=== PATIENT | female | born 1990 | race Caucasian/White ===

== ENCOUNTER 2020-02-20 19:39 | Emergency (ER) | payer OTHER, SELFPAY ==
--- NOTE | ~2020-02-20 | XR_ITS ---
EXAMINATION: XR chest 2V DATE: 02/20/2020 20:29 INDICATION: Weakness and fatigue TECHNIQUE: PA and lateral views of the chest are obtained. COMPARISON: None available FINDINGS: The lungs are free of acute opacities. There is no pleural effusion or pneumothorax. The ca rdiomediastinal silhouette is normal. The visualized osseous structures are unremarkable. Bilateral b reast implants are noted. IMPRESSION: 1. No acute cardiopulmonary abnormality. Reviewed, dictated and finalized at location A.
[2020-02-20 19:41] VITALS: BP 116/76; PULSE 94; RESP 20; TEMP 36.8; O2SAT 100
[2020-02-20 19:51] LABS: Basophils Percent Auto 0.4 % (0.2-1.2); Eosinophils Absolute Auto 0.3 K/mm3 (0-0.3); Eosinophils Percent Auto 3.1 % (0-4.4); Hematocrit 42.1 % (37.0-47.0); Hemoglobin 13.8 g/dL (12.0-15.0); Immature Granulocyte Absolute 0.02 K/mm3 (0.00-0.031); Immature Granulocyte Percent A 0.2 % (0-0.5); Lymphocytes Absolute Auto 2.94 K/mm3 (0.9-3.2); Mean Corpuscular HGB Conc 32.8 g/dl (32-36); Mean Corpuscular Hemoglobin 30.3 pg (26-34); Mean Corpuscular Volume 92.3 fl (80-100); Monocytes Absolute Auto 0.7 K/mm3 (0.1-0.6); Monocytes Percent Auto 6.7 % (2.6-8.5); Neutrophils Absolute Auto 6.5 K/mm3 (1.3-6.7); Neutrophils Percent Auto 61.6 % (45.5-73.1); Platelet Count Result 284 k/mm3 (150-375); Red Blood Count 4.56 M/mm3 (4.2-5.4); White Blood Count 10.5 K/mm3 (4.5-10.0)
[2020-02-20 20:02] LABS: Alanine Aminotransferase 17 U/L (4-35); Albumin Level 4.7 g/dL (3.5-5.1); Alkaline Phosphatase 70 U/L (38-126); Anion Gap 6 mmol/L (8-16); Aspartate Amino Transferase 27 U/L (14-36); Bilirubin,Total 0.4 mg/dL (0.2-1.3); Blood Urea Nitrogen 12 mg/dL (7-17); Calcium 9.3 mg/dL (8.4-10.2); Carbon Dioxide 26 mmol/L (22-30); Chloride 103 mmol/L (98-107); Estimated CRCL calculation 87 ml/min; Estimated Glomerular Filt Rate > 60; Glucose 95 mg/dL (65-105); Potassium 4.3 mmol/L (3.4-5.0); Sodium 135 mmol/L (137-145)
[2020-02-20 20:43] LABS: Add Urine Microscopic? NO; Appearance Urine Clear (Clear); Bilirubin Urine Negative (Negative); Blood Urine Negative (Negative); Color Urine Straw (Yellow); Glucose Urine UA Negative (Negative); Ketones Urine Negative (Negative); Leukocyte Esterase Ur Negative LEU/UL (Negative); Nitrate Urine Negative (Negative); Protein Urine Negative (Negative); Specific Grav Ur 1.015 (1.001-1.035); Urobilinogen Urine Negative mg/dL (<2.0)
--- NOTE | 2020-02-20 21:08 | ED.GENADULT ---
HPI - General Adult General Chief complaint: Weakness Stated complaint: weakness Time Seen by Provider: 02/20/20 20:42 Source: patient Mode of arrival: ambulatory Limitations: no limitations History of Present Illness HPI narrative: 29 years old white female presents with not feeling good, general weakness and tiredness for 4 weeks, got worse over the last 2 weeks. Patient denies any fever, chills, nausea, vomiting, diarrhea, constipation, chest pain, shortness of breath, back pain, headache. Patient reports a lot of stress lately. Related Data Allergies Allergy/AdvReac Type Severity Reaction Status Date / Time bacitracin Allergy Unknown Verified 12/09/15 14:51 lidocaine Allergy Unknown Verified 12/09/15 14:51 naproxen Allergy Unknown Verified 12/09/15 14:51 neomycin Allergy Unknown Verified 12/09/15 14:51 polymyxin B Allergy Unknown Verified 12/09/15 14:51 pramoxine Allergy Unknown Verified 12/09/15 14:51 prilocaine Allergy Unknown Verified 12/09/15 14:51 Review of Systems Review of Systems: Narrative: CONSTITUTIONAL: Denies fever, chills, or sweats. EYES: Denies visual changes, redness, or discharge. ENT: Denies rhinorrhea, congestion, sore throat, or otalgia. CARDIOVASCULAR: Denies chest pain, palpitations, or edema. RESPIRATORY: Denies cough or dyspnea. GASTROINTESTINAL: Denies abdominal pain, nausea, vomiting, or diarrhea. GENITOURINARY: Denies dysuria or hematuria. SKIN: Denies rash or itching. MUSCULOSKELETAL: Denies back pain, joint pain, or myalgia. NEUROLOGIC: Denies headache, numbness, or weakness. PSYCHIATRIC: Denies anxiety or depression. PMFSH Past Medical History Medical History (Updated 02/20/20 @ 21:15 by Figueroa Martines MD) Depression Social History Social History (Updated 02/20/20 @ 21:09 by Figueroa Martines MD) Social History: Patient smokes occasionally, drinks occasionally, denies any marijuana Substance use: unknown Exam Narrative: Exam Narrative: General appearance: Well-developed, well-nourished Skin: Normal color Head: Normocephalic, nontraumatic Eyes: Clear conjunctiva ENT: Oropharynx normal, ears normal, nose normal Neck: Supple, nontender Chest and respiratory: Airway patent, no respiratory distress, no accessory muscle use Heart: Regular rate/rhythm Abdomen: Soft, nontender, no organomegaly, quiet bowel sounds Vascular: Normal peripheral pulses, normal capillary refill. Musculoskeletal: Normal range of motion, nontender back Neurologic: Alert and oriented ?3, [employer] is normal as tested, no gross motor deficit Course Course Emergency Course: Stable Vital Signs Vital signs: Vital Signs Temperature 36.8 C 02/20/20 19:41 Pulse Rate 94 02/20/20 19:41 Respiratory Rate 02/20/20 19:41 Blood Pressure 116/76 02/20/20 19:41 Pulse Oximetry 100 02/20/20 19:41 Temperature 36.8 C 02/20/20 19:41 Pulse Rate 94 02/20/20 19:41 Respiratory Rate 02/20/20 19:41 Blood Pressure 116/76 02/20/20 19:41 Pulse Oximetry 100 02/20/20 19:41 Medical Decision Making MDM Narrative Medical decision making narrative: Patient presents with weakness and tiredness for over 1 month, a lot of stress lately. Anxiety, depression induced fatigue and general weakness is my concern. On physical exam patient been having intermittent sighing. Mother at the bedside will have history of depression and anxiety. Physical exam unremarkable, blood work-up is unremarkable. My plan to discharge patient on sertraline and clonazepam. Differential Diagnosis Differential Diagnosis: Electrolyte imbalance, urinary tract infection, depression and anxiety Vital Signs Vital Signs: Vital Signs Temperature
[2020-02-20 21:36] VITALS: BP 115/75; PULSE 97; RESP 18; O2SAT 100
== END 2020-02-20 21:37 | disposition home or self-care (01) ==
PROVIDERS: Emergency Provider Emergency Medicine
DX: F41.9 Anxiety disorder, unspecified (principal); F17.200 Nicotine dependence, unspecified, uncomplicated
CPT/HCPCS: 36415; 71046; 80053; 81003; 81025; 85025; 99283

== ENCOUNTER → 2020-02-25 12:30 | Outpatient (CLI) | payer OTHER, SELFPAY ==
--- NOTE | ~2020-02-25 | XR_ITS ---
EXAMINATION: XR lumbar spine 2-3V EXAM DATE: 02/25/2020 13:19 INDICATION: Low-back pain. TECHNIQUE: Lumber spine frontal, lateral, lateral L5-S1 projections for interpretation. There is no prior study for comparison. FINDINGS: There are no acute fractures identified. Sacrum, sacroiliac joints, sacral arcuate lines a re intact. The vertebral bodies are aligned in the AP dimension. Vertebral body and disc heights are well-maintained. Mild lumbar facet arthropathy. Paraspinal soft tissue is unremarkable. IMPRESSION: Mild lumbar facet arthropathy. Reviewed, dictated and finalized at location A.
--- NOTE | ~2020-02-25 | XR_ITS ---
XR cervical spine 4-5V DATE: 02/25/2020 13:19 INDICATION: Neck pain TECHNIQUE: AP, open-mouth, lateral and swimmer views COMPARISON: None FINDINGS: There is straightening/slight reversal of the cervical spine. C1 and C2 are normally aligned and the odontoid process is intact. No fracture or dislocation or lock ed facet or prevertebral soft tissue swelling. The cervical interspaces are preserved. There is mild dextro scoliosis of the upper thoracic spine. IMPRESSION: Straightening/mild reversal cervical curvature Reviewed, dictated and finalized at location B.
== END ==
PROVIDERS: PCP Emergency Medicine; Visit Provider Emergency Medicine
DX: M54.2 Cervicalgia (principal)
CPT/HCPCS: 72050; 72100

== ENCOUNTER → 2021-05-24 08:55 | Outpatient (CLI) | payer OTHER, SELFPAY ==
[2021-05-25 03:58] LABS: SARS-CoV-2 RNA PCR Positive
== END ==
PROVIDERS: PCP Emergency Medicine; Visit Provider Emergency Medicine
DX: U07.1 COVID-19 (principal); J06.9 Acute upper respiratory infection, unspecified
CPT/HCPCS: C9803; U0003; U0005

== ENCOUNTER 2022-08-09 10:48 | Emergency (ER) | payer OTHER, SELFPAY ==
[2022-08-09 10:56] VITALS: BP 127/90; PULSE 91; RESP 18; TEMP 36.7; O2SAT 98
--- NOTE | 2022-08-09 11:00 | ED.WOUNDLAC ---
HPI - Wound/Laceration General Chief Complaint: Wound/Laceration Stated Complaint: Cut Thumb Lt Hand Time Seen by Provider: 08/09/22 11:00 Source: patient Mode of arrival: ambulatory Limitations: no limitations History of Present Illness HPI narrative: 32-year-old female presented for of laceration to the left after injury today. She states she was at work, cutting green onions with a knife slipped and sliced the tip of the thumb. She was tested under water and applied Band-Aids, stating it continued to bleed. Denies numbness, tingling, weakness or decreased range of motion. Unsure of last tetanus. Related Data Allergies Allergy/AdvReac Type Severity Reaction Status Date / Time naproxen AdvReac Mild Hives Verified 08/09/22 11:09 Review of Systems Review of Systems: CONSTITUTIONAL: Denies body aches, fever, chills, or sweats. CARDIOVASCULAR: Denies chest pain, palpitations, or edema. RESPIRATORY: Denies cough or dyspnea. SKIN: laceration left thumb MUSCULOSKELETAL: Denies back pain, joint pain, or myalgia. NEUROLOGIC: Denies headache, numbness, tingling, or weakness. [facility] Past Medical History Medical History Depression Social History Social History Social History: Patient smokes occasionally, drinks occasionally, denies any marijuana Substance use: unknown Comments At time of signature, I have reviewed and agree with nursing past medical, surgical, social and family history unless otherwise noted. Please see nursing chart for further information. There is no relevant family history pertinent to the presenting complaint Exam Narrative: GENERAL: Well-appearing ENT: Mucous membranes moist. Oropharynx without edema, erythema or lesions. NECK: Supple. No lymphadenopathy CHEST: Clear to auscultation. HEART: Regular rate and rhythm. SKIN: Left thumb distal aspect with irregular laceration approx 0.5cm under nail edge with flap extending over the nail approx 2mm; laceration extends to ulnar aspect approx additional 0.5cm, small amount bleeding; no nail laceration. NEURO: Alert and oriented x3. Course Course Emergency Course: Patient is aware of diagnosis, understands and agrees to treatment plan. Anticipatory guidance given. Patient agrees to follow-up as directed and is aware of reasons to seek care at the emergency department. Portions of this record may have been created with voice recognition software Level of Care: Express Care Visit Vital Signs Vital signs: Vital Signs Temperature 98.1 F 08/09/22 10:56 Pulse Rate 91 08/09/22 10:56 Respiratory Rate 18 08/09/22 10:56 Blood Pressure 127/90 08/09/22 10:56 Pulse Oximetry 98 08/09/22 10:56 Oxygen Delivery Room Air 08/09/22 10:56 Temperature 98.1 F 08/09/22 10:56 Pulse Rate 91 08/09/22 10:56 Respiratory Rate 18 08/09/22 10:56 Blood Pressure 127/90 08/09/22 10:56 Pulse Oximetry 98 08/09/22 10:56 Oxygen Delivery Room Air 08/09/22 10:56 Reviewed Procedures Laceration left thumb: Date: 08/09/22 Description: flap and irregular Depth: simple, single layer Pre-repair: wound explored and irrigated ====== Skin Level ====== Skin layer closed with: dermabond and steri strips ====== Subcutaneous Layer ====== ====== Muscle Layer ====== ====== Tendon Layer ====== Dressing: Wound cleansed. verbal consent obtained. Bleeding controlled, edges approximated with steri strips then dermabond applied. Pt tolerated well. MDM - Wound/Laceration MDM Narrative Medical decision making narrative: Patient tolerated wound closure. Tetanus updated today. Advised supportive measures and signs/symptoms to go to the ER. Pt is appropriate for outpt treatment and f/u. Differential Diagnosis Differential diagnosis: Likely laceration, abrasion and av
[2022-08-09] MEDS: TETANUS,DIPHTHERIA,AC PERTUSSIS ADULT (0.5 ML) BOOSTRIX IM (11:14)
== END 2022-08-09 11:30 | disposition home or self-care (01) ==
PROVIDERS: Emergency Provider Nurse Practitioner Family
DX: S61.012A Laceration without foreign body of left thumb without damage to nail, initial encounter (principal); F17.200 Nicotine dependence, unspecified, uncomplicated; Z23 Encounter for immunization; W26.0XXA Contact with knife, initial encounter; Y99.0 Civilian activity done for income or pay
CPT/HCPCS: 12001; 90471; 90715; 99213; G0463

== ENCOUNTER 2024-04-17 15:25 | Emergency (ER) | payer OTHER, SELFPAY ==
--- NOTE | 2024-04-17 15:26 | ED.FEMALEGU ---
HPI - Female Genitourinary General Chief complaint: Urogenital-Female Stated complaint: Possible UTI Time Seen by Provider: 04/17/24 15:26 Source: patient Mode of arrival: ambulatory Limitations: no limitations History of Present Illness HPI Narrative: patient is a 33-year-old female who presents with 3 days of hematuria, burning with urination, frequency, low back pain. Denies any fever, chills, nausea, vomiting, diarrhea. Did take azo today. MD elicited complaint: dysuria Related Data Home Medications Medication Instructions Recorded Confirmed clonazepam 1 mg tablet 1 mg PO BID 04/17/24 04/17/24 lurasidone 120 mg tablet 120 mg PO DAILY 04/17/24 04/17/24 Allergies Allergy/AdvReac Type Severity Reaction Status Date / Time naproxen AdvReac Mild Hives Verified 04/17/24 15:36 Review of Systems Review of Systems: All systems reviewed & are unremarkable except as noted in HPI and below Constitutional: Constitutional: Denies chills, Denies fever(s), Denies headache(s), Denies malaise and Denies weakness Eyes: Eyes: Denies change in vision, Denies eye discharge and Denies irritation ENT: Denies otalgia, Denies headache(s), Denies nasal congestion, Denies nasal discharge, Denies sinus pain and Denies sore throat Cardiovascular: Cardiovascular: Denies chest pain, Denies edema, Denies palpitations and Denies dyspnea Respiratory: Respiratory: Denies cough and Denies dyspnea Gastrointestinal: Gastrointestinal: Denies abdominal pain, Denies diarrhea, Denies nausea and Denies vomiting Genitourinary: Genitourinary: Denies hematuria, Reports nocturia, Reports dysuria, Reports flank pain and Reports urinary urgency Musculoskeletal: Musculoskeletal: Denies back pain and Denies numbness Integumentary/Breasts: Skin/Breast: Denies pruritus and Denies rash Neurologic: Denies headache(s), Denies numbness and Denies weakness Psychiatric: Psychiatric: Reports no additional psychiatric complaints Endocrine: Endocrine: Denies palpitations PMFSH Past Medical History Medical History Depression Social History Social History Social History: Patient smokes occasionally, drinks occasionally, denies any marijuana Substance use: unknown Comments At time of signature, agree with nursing past medical, surgical, social and family history. There is no relevant family history pertinent to the presenting complaint. Exam Const: General: cooperative, healthy appearing, comfortable, no acute distress and well nourished Nutritional Appearance: well nourished Orientation/consciousness: patient oriented x3 HENMT: Head: normocephalic and atraumatic Ears: external ears normal Face/Nose/Sinus: Normal external nose present, Normal nares present and normal facial exam Face and sinus: normal facial exam Eyes: General: appearance normal, both eyes and all related structures Pupils: Equal, round and reactive pupils present EOM: EOMs intact bilaterally Neck: Neck: normal visual inspection, full ROM and supple Chest: Chest palpation & inspection: normal inspection of the chest Resp: Effort & Inspection: normal respiratory effort and able to speak in complete sentences Cardio: Rate: regular rate Rhythm: regular rhythm GI: Inspection: normal to inspection GI Palp: No abdominal tenderness and Yes Soft to palpation : General: Yes no CVA tenderness Back/Spine/Pelvis: Back: no CVA tenderness Skin: General skin exam: normal color and no rashes or lesions noted Neuro: General: patient oriented x3 and moves all extremities Cranial nerves: Yes Equal, round and reactive pupils present Extrem: General: normal to inspection and full ROM Psych: Appearance: grossly normal and well kempt Course Course Emergency Course: Patient is aware of diagnosis, understands and agrees to treatment plan. Anticipatory guidance given. Patient agrees to follow-up as directed and is aware of reasons to seek care at the emergency department. Portions of this record may have been created with voice recognition software Level of Care: Express Care Visit Vital Signs Vital signs: Vital Signs Temperature 36.7 C 04/17/24 15:36 Pulse Rate 110 H 04/17/24 15:36 Respiratory Rate 18 04/17/24 15:36 Blood Pressure 110/84 04/17/24 15:36 Pulse Oximetry 100 04/17/24 15:36 Oxygen Delivery Room Air 04/17/24 15:36 Temperature 36.7 C 04/17/24 15:38 Pulse Rate 103 H 04/17/24 15:47 Respiratory Rate 18 04/17/24 15:38 Blood Pressure 110/84 04/17/24 15:38 Pulse Oximetry 100 04/17/24 15:38 Oxygen Delivery Room Air 04/17/24 15:38 Reviewed MDM - Female Genitourinary MDM Narrative Medical decision making narrative: Exam findings and UA show probable UTI; patient is non-toxic appearing and is in no distress. No CMT, adnexal tenderness, or evidence of pelvic etiology. Patient is appropriate for outpatient treatment and follow-up. Differential Diagnosis Differential diagnosis: Likely urinary tract infection, bacterial vaginosis, trichomoniasis, cervicitis, vaginitis and cystitis Medical Records Attestation: I reviewed the patient's medical records. Lab Data Attestation: I reviewed the patient's lab results. Labs: Lab Results 04/17/24 Range/Units 15:53 POC Urine Color Yellow POC Urine Clarity Cloudy POC Urine pH 5.5 POC Ur Specif [place] 1.030 POC Urine Protein 2+ (Negative) POC Ur Glucose (UA) Negative (Negative) POC Urine Ketones Trace (Negative) POC Urine Blood 2+ (Negative) POC Urine Nitrite Negative (Negative) POC Urine Bilirubin 1+ (Negative) POC Urine Urobilinogen 0.2 POC U Leukocyte Esteras 1+ (Negative) Discharge Plan Discharge Clinical Impression: Urinary tract infection Qualifiers: Urinary tract infection type: acute cystitis Hematuria presence: with hematuria Qualified Code(s): N30.01 - Acute cystitis with hematuria Patient Disposition: Home, Self-Care Condition: Stable Instructions: Urinary Tract Infection in Women (ED) Additional Instructions: We will send a urine culture to the lab, based on your symptoms and urine dip we will start treatment today. If culture comes back and bacteria is not susceptible to antibiotic, your prescription may change. Your symptoms should improve within a day of starting antibiotics, but you should finish all the antibiotic pills you get. Otherwise your infection might come back Continue with increased water intake. Take Tylenol or ibuprofen as needed for pain or fever. Follow-up with primary care provider for urine recheck or see ER visit if condition worsens with high fever, nausea, vomiting, severe back pain Prescriptions: New cephalexin 500 mg capsule 500 mg PO BID 5 Days Qty: 10 0RF No Action clonazepam 1 mg tablet 1 mg PO BID lurasidone 120 mg tablet 120 mg PO DAILY Follow-up/Referrals: Jack,NADEGE Carpenter [Primary Care Provider] - 3 Days Stand Alone Forms: Work/School Release IP Time of Disposition: 16:23
[2024-04-17 15:36] VITALS: BP 110/84; PULSE 110; RESP 18; TEMP 36.7; O2SAT 100
[2024-04-17 15:38] VITALS: BP 110/84; PULSE 110; RESP 18; TEMP 36.7; O2SAT 100
[2024-04-17 15:47] VITALS: PULSE 103
[2024-04-17 15:55] LABS: EDUAAPPEAR Cloudy; EDUABILI 1+ (Negative); EDUABLOOD 2+ (Negative); EDUACOLOR1 Yellow; EDUAGLUCOSE Negative (Negative); EDUAKETONE Trace (Negative); EDUALEUKO 1+ (Negative); EDUANITRATE Negative (Negative); EDUAPH 5.5; EDUAPROTEIN 2+ (Negative); EDUAUROBILI 0.2
== END 2024-04-17 16:25 | disposition home or self-care (01) ==
PROVIDERS: Emergency Provider Nurse Practitioner Family; PCP Nurse Practitioner Family
DX: N30.01 Acute cystitis with hematuria (principal); B96.20 Unspecified Escherichia coli [E. coli] as the cause of diseases classified elsewhere; F32.A Depression, unspecified; Z72.0 Tobacco use
CPT/HCPCS: 81003; 87077; 87086; 87186; 99213; G0463

== ENCOUNTER 2024-10-27 16:28 | Emergency (ER) | payer OTHER, SELFPAY ==
--- OUTSIDE RECORDS SUMMARY | 2024-10-27 16:32 | XMS_ITS | Continuity of Care Document ---
Author Organization [facility] Address [address] [place] [address] [address] [place] [address] Phone Care Team Providers Care Pr Manager Name Role Phone Cho OD, Dgao Unavailable Unavailable Advance Directives Directive Yes / No Effective Date File Name No Information Encounters Encounter Description Practice Location Reason(s) For Visit Diagnoses Date Provider Providers Copied on Encounter [facility], [id number] [place] [address] [address], [place], [place], [id number], [place] tel:[phone] [facility] No Information 7-200 6 Cho OD Dago. [address] , [address], [place], [address], [place]. tel:[phone] Family History Family Member Type Diagnosis Age At Onset No Information Payers Payer name Insurance type Covered democrat ID Authoriza tion(s) No Information Social History Type Description Quantity Date Captured Comments Sex Female Smoking Status No Information Chief Complaint And Reason For Visit No Information Reason For Referral Reason For Referral No Information History Of Present Illness Encounter Date Complaint History Of Prese nt Illness No Information Functional Status Date Functional Assessmen t No Information Instructions Date Instruction Additional Infor mation No Information Assessments Type Assessment Date No Information Patient Care Teams Name Effective Dates (start - stop) Status Members No Information
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
--- OUTSIDE RECORDS SUMMARY | 2024-10-27 16:32 | XMS_ITS | Referral Summary ---
Author Organization [facility] Address [address] [place] [address] Care Team Providers Care Newspaper Press Operator Apprentice Name Role Phone Efren Valerio MD Primary Care Provider [phone] Allergies Active Allergy Reactions Criticality Noted Date Comments Diphenhydramine Other (See comments) Reaction: Burning Sensation, Naproxen Other (See comments) Reaction: Burning Sensation, Medications traMADol (ULTRAM) 50 mg tablet Take 50 mg by mouth every 6 (six) hours. Active ALPRAZolam (XANAX) 0.5 mg tablet Take 0.5 mg by mouth nightly as needed for anxiety. Active minocycline (DYNACIN) 100 mg tablet Take 100 mg by mouth 2 (two) times a day. Active DULoxetine DR (CYMBALTA) 60 mg capsule Take 60 mg by mouth daily. Active albuterol HFA (PROVENTIL HFA,VENTOLIN HFA) 90 mcg/actuation inhaler Inhale 2 puffs every 6 (six) hours as needed for wheezing. Active topiramate (TOPAMAX) 50 mg tabletIndicati ons:Migraine Prevention Take 1 tablet (50 mg total) by mouth daily. Patient needs a follow up appointment for further refills. 30 tablet 9 Active tiZANidine (ZANAFLEX) 4 mg tablet Take 1 tablet (4 mg total) by mouth every 6 (six) hours as needed (To relax muscles) Collaborating physician Efren Villarreal MD 20 tablet 1 Active traMADoL (ULTRAM) 50 mg tablet Take 1 tablet (50 mg total) by mouth every 6 (six) hours P.r.n. pain. Take 500 mg to 650 mg of Tylenol with each dose. Take with food. Collaborating physician Efren Villarreal MD 20 tablet 1 Active Active Problems Problem Noted Date Diagnosed Date Left shoulder strain, initial encounter 02/06/20 21 Rotator cuff strain, left, initial encounter 03/2021 Spells of trembling 09/13/2017 Assessment & Plan (03/11/2018 12:56 PM CDT): Progressive trembling up extremities bilaterally without loss of consciousness, but impaired ability to control body that is different that prior seizures. It is certainly possible initial events were seizure, however current events sound most consistent with pseudoseizure. Her marked temporary resolution after initiation of topamax 25 mg BID would not be expected response of near daily seizures to low dose AED. I again explained that prior EEG was unrevealing, which was discussed at last visit, but patient remains under impression it was abnormal. Patient is 'usually' not driving, and I again explained legally mandated 6 month driving restriction after events of this nature, even if I do not believe they are epileptic events. I explained this to grandmother as well that she should not be driving. Last event was 2 weeks prior to this visit, so cannot drive until August currently, and this restarts with each subsequent event. I strongly encouraged she follow-up with CBT for stress management/coping skills. I again raised possibility of inpatient vEEG monitoring with epileptologist to confirm nature of these events, which she remains uninterested in. She again asserts that she has 'already done everything' for anxiety and is more interested in addressing her medical issues. I was with the patient for over 25 minutes and spent >50% of the visit reviewing pertinent test results with the patient, counseling them on medication management options and lifestyle changes that could benefit symptoms, answering their questions, and discussing follow-up planning Assessment & Plan (09/13/2017 12:34 PM CDT): 27 year old who reports history of seizures with a few events in past and then for last 6 months daily/multiple times daily episodes that are different. She reports in past having one episode while sitting on barstool where left arm contracted up and she fell of bar stool and lips turned blue to point that father started CPR that sound like a potential generalized seizure. She has had 2 episodes of just dropping as well. EEG after she reports was normal. She broke up with long-term boyfriend 7 months ago and for last 6 months has had daily episodes of severe convulsions where she cannot control her body, feels short of breath, and terribly anxious about what is going on. She has preserved consciousness during this time, and recent EEG reviewed and normal (she reports she was told this EEG showed temporal lobe abnormalities, but report I have available is of normal EEG, and I showed this report to her). 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 She was not receptive to this diagnosis and adamant this is not just stress, something is going on with me and I want my life back. She was not receptive to seeing psychiatry or following up to help identify improved coping mechanisms. It is certainly possible for people to have both seizures and non-epileptic seizures, so I do still have some concerns about her prior events, but she has not had any events like that recently. At this time she feels I have done everything I need to address stress. I told her given daily episodes, it would be appropriate to obtain vEEG monitoring to definitely assess these episodes, but she was not interested in referral to seizure specialist for vEEG monitoring. I was with the patient for over 70 minutes and spent >50% of the visit reviewing pertinent test results with the patient, counseling them on medication management options and lifestyle changes that could benefit symptoms, answering their questions, and discussing follow-up planning Chronic daily headache 09/13/2017 Assessment & Plan (03/11/2018 12:46 PM CDT): Has headache and neck pain that improved markedly after topiramate 25 BID started and she never increased, despite headaches gradually returning over last few weeks. Will increase evening dose to 50 mg, with plan to increase AM dose to 50 mg in 3-4 weeks if no improvement by that time. She is also on cymbalta 60 I suspect MSK neck pain may be partly related to her headaches and would see how this improves with improved headache control. Continue to stay well hydrated, encouraged exercise and sleep, and again encouraged anxiety management and follow-up. Assessment & Plan (09/13/2017 12:32 PM CDT): Patient reports daily headaches that have migrainous and tension type features. She has not been on preventative medication. Main risk factors at this time seem to be significant sleep deprivation and stress/mood. She was not receptive to suggestions for lifestyle/stress management options, including increased exercise. I reviewed preventative medications and suggested options included increasing cymbalta, starting propranolol to help both headaches and prominent constant fight or flight feeling, however she would prefer to start a seizure medication such as topiramate, which could be beneficial in event of epilepsy co-morbid to her non-epileptic events. I expressed my concern about weight loss and instructed her to call clinic should she start to lose any weight as we would need to discontinue medication. I reviewed other side effects to look for and suggested she return in 3 months for re-evaluation of headaches. Left sided numbness 09/13/2017 Assessment & Plan (03/11/2018 12:48 PM CDT): Questions neuropathy as cause. She splits midline to vibration, has normal reflexes and strength and only finding is subject sensory decrease that I suspect is at least partly psychogenic given prominent vibration decrease on forehead. MRI was reportedly normal, but still have not received results to review. I again requested she have this sent. Could consider EMG/NCS and small fiber neuropathy work-up, but did not recommend at this time while focusing on headache and spell management. Given concern for pseudoseizures as well, this most likely represents somatic symptom of mood disorder and is unchanged, so would just monitor finding for time being. Assessment & Plan (09/13/2017 12:22 PM CDT): 50% decrease to sensation on left side of face/arm/leg She splits midline to all modalities and reports vibration is 50% decreased on RIGHT side of head. This episodically worse and at times associated with hyperesthesia of right side of body. This is a non-neurologic pattern of sensory loss and suggestive of embellishment or psychiatric overlay. Anxiety 09/03/2015 Assessment & Plan (09/13/2017 12:33 PM CDT): I believe this to be patient's major issue, however she reports that she has already done everything for this. As is not receptive to further discussion that it could be related to many, if not all, of her complaints. Irritable bowel syndrome 09/03/2015 Endometriosis 09/03/2015 Joint pain 09/03/2015 Social History Tobacco Use Types Packs/Day Years Used Date Smoking Tobacco: Never Smokeless Tobacco: Never Alcohol Use Standard Drinks/Week Comments No 0 (1 standard drink = 0.6 oz pur e alcohol) Comments No Sex and Gender Information Value Date Recorded Sex Assigned at Not on file Legal Sex Female 10:37 AM RESEARCH ENGINEER Gender Identity Not on file Sexual Orientation Not on file Last Filed Vital Signs Vital Sign Reading Time Taken Comments Blood Pressure 101/57 02/05/2021 6:18 PM CDT Pulse 98 02/05/2021 6:18 PM CDT Temperature 37.2 C (98.9 F) 02/05/2021 6:18 PM CDT Respiratory Rate 16 02/05/2021 6:18 PM CDT Oxygen Saturation 96% 02/05/2021 6:18 PM CDT Inhaled Oxygen Concentration - - Weight 47.4 kg (104 lb 6.4 oz) 03/15/2018 10:45 AM CDT Height 152.4 cm (5') 03/15/2018 10:45 AM CDT Body Mass Index 20.39 03/15/2018 10:45 AM CDT Plan of Treatment Not on file Insurance [facility] MEDICAID AETNA [facility] AETNA BETTER [facility] [place] AETNA BETTER [facility] Care Teams Newspaper Press Operator Apprentice Relationship Specialty Start Date End Date Efren Valerio MD PCP - General Family Medicine 08/17/17
--- OUTSIDE RECORDS SUMMARY | 2024-10-27 16:32 | XMS_ITS | CONTINUITY OF CARE DOCUMENT ---
Author Name jose garcia Address Unknown Organization [facility] Address [address] [place] [address] Phone [phone] Care Team Providers Care Grocery Manager Name Role Phone Shakira Isbell MD Unavailable [phone] ALEJANDRO SPANGLER MD Unavailable [phone] ALEJANDRO SPANGLER MD Unavailable [phone] INSURANCE PROVIDERS Payer name Policy type / Coverage type [place] red constitution party ID AETNA [facility]TER [facility] [place] Medicaid [id number]
--- OUTSIDE RECORDS SUMMARY | 2024-10-27 16:32 | XMS_ITS | Encounter Summary ---
Author Organization [facility] Care Team Providers Care Estate Conservator Name Role Phone Efren Valerio MD Primary Care Provider [phone] Encounter Details Date Type Department Care Team (Latest Contact Info) Description 08/17/2017 Orders Only [facility] CLINCONV ProviderElida MD [address] [place] [id number] Social History Tobacco Use Types Packs/Day Years Used Date Smoking Tobacco: Never Assessed Comments Unknown Sex and Gender Information Value Date Recorded Sex Assigned at Not on file Legal Sex Female 10:37 AM OIL REFINERY PROCESS TECHNICIAN Gender Identity Not on file Sexual Orientation Not on file documented as of this encounter Plan of Treatment Not on file documented as of this encounter Procedures Procedure Name Priority Date/Time Associated Diagnosis Comments CARDIOLOGY REPORT 08/20/2017 12: 00 AM CDT documented in this encounter Results * CARDIOLOGY REPORT (08/20/2017 12:00 AM CDT) Anatomical Region Laterality Modality Other Narrative 08/20/2017 12:00 AM CDT Ordered by an unspecified provider. Historical Provider [facility] Final Result documented in this encounter Visit Diagnoses Not on filedocumented in this encounter Care Teams Estate Conservator Relationship Specialty Start Date End Date Efren Valerio MD PCP - General Family Medicine 08/17/17 documented as of this encounter
--- OUTSIDE RECORDS SUMMARY | 2024-10-27 16:32 | XMS_ITS | Encounter Summary ---
Author Organization [facility] Facility Care Team Providers Care Railroader Name Role Phone Efren Valerio MD Primary Care Provider [phone] Encounter Details Date Type Department Care Team (Latest Contact Info) Description 07/20/2017 Orders Only [facility] CLINCONV ProviderElida MD [address] [place] [address] Social History Tobacco Use Types Packs/Day Years Used Date Smoking Tobacco: Never Assessed Comments Unknown Sex and Gender Information Value Date Recorded Sex Assigned at Not on file Legal Sex Female 10:37 AM ANNUAL GIVING MANAGER Gender Identity Not on file Sexual Orientation Not on file documented as of this encounter Plan of Treatment Not on file documented as of this encounter Procedures Procedure Name Priority Date/Time Associated Diagnosis Comments SCAN - LABS 07/25/2017 12:00 AM ANNUAL GIVING MANAGER documented in this encounter Results * SCAN - LABS (07/25/2017 12:00 AM ANNUAL GIVING MANAGER) Narrative 07/25/2017 12:00 AM ANNUAL GIVING MANAGER Ordered by an unspecified provider. Historical Provider Final Res ult documented in this encounter Visit Diagnoses Not on filedocumented in this encounter Care Teams Railroader Relationship Specialty Start Date End Date Efren Valerio MD PCP - General Family Medicine 08/17/17 documented as of this encounter
--- OUTSIDE RECORDS SUMMARY | 2024-10-27 16:32 | XMS_ITS | Clinical Summary ---
Author Organization [facility] Address [address] [place] [address] Care Team Providers Care Automatic Operator Name Role Phone Efren Valerio MD Primary Care Provider [phone] [facility],non-owned Affiliates and Associated Physician Practices is amultiple site organization consisting of ambulatory clinics and hospital sitesin [place], [place], [place] and [place]. This disclosure is being madepursuant to the Care Everywhere program and may not contain all information available regarding this patient. Last updated 18.[facility] Allergies Active Allergy Reactions Criticality Noted Date Comments Naproxen Rash Medium 03/02/2018 Medications * Be aware that medications may not be up to date on this document. Alwaysverify current medications with the patient. Biotin 2.5 MG tablets Take 2.5 mg by mouth once daily. Active drospirenone-eth inyl estradiol (KIRK) 3-0.03 MG tablet Take 1 Tab by mouth once daily. Active ALPRAZolam (XANAX) 1 MG tablet Take 1 mg by mouth 3 times daily as needed. Active rizatriptan, disintegrating, (MAXALT UNDERWATER WELDER) 10 MG tablet Take 10 mg by mouth once as needed. Active diphenhydrAMINE (BENADRYL) 25 MG tablet Take by mouth every 4 hours as needed. Active aspirin (ASPIRIN) 325 MG tablet Take 325 mg by mouth every 4 hours as needed. Active traMADol (ULTRAM) 50 MG tablet Take 50 mg by mouth every 6 hours as needed. Active multivitamin daily (THERAGRAN) tablet Take 1 Tab by mouth daily with food. Active helena (HELENA) 500 MG capsule Take 500 mg by mouth 3 times daily. Active ondansetron (ZOFRAN) 4 MG tablet Take 4 mg by mouth every 6 hours as needed. Active oxyCODONE-acetam inophen (PERCOCET) 5-325 MG tablet Take 1-2 Tabs by mouth every 6 hours as needed. 60 Tab 0 11/17/2013 Active Docusate Sodium (DSS) 100 MG CAPS Take 100 mg by mouth 2 times daily. 60 Cap 3 11/17/2013 Active polyethylene glycol 3350 (MIRALAX) packet Take 17 g by mouth once daily. 1 Packet 3 11/17/2013 Active ibuprofen (MOTRIN) 600 MG tablet Take 1 Tab by mouth every 6 hours as needed for Pain. 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 Family History Medical History Relation Name Comments Cancer Maternal Grandfather Cancer Maternal Grandmother Relation Name Status Comments Maternal Grandfather Maternal Grandmother Social History Tobacco Use Types Packs/Day Years Used Date Smoking Tobacco: Never Smokeless Tobacco: Never Tobacco Cessation:Counseling Given: No Alcohol Use Standard Drinks/Week Comments No 0 (1 standard drink = 0.6 oz pure alcohol) None now, but heavy use in past; abstinent since 2010 DUI x 2 Comments No Sex and Gender Information Value Date Recorded Sex Assigned at Not on file Legal Sex Female 9:05 AM CHILD WELFARE DIRECTOR Gender Identity Not on file Sexual Orientation Not on file Last Filed Vital Signs Vital Sign Reading Time Taken Comments Blood Pressure 111/81 03/02/2018 7:00 AM CDT Pulse 88 03/02/2018 3:47 AM CDT Temperature 36.9 C (98.4 F) 03/02/2018 3:24 AM CDT Respiratory Rate 18 11/17/2013 5:27 PM CDT Oxygen Saturation 99% 03/02/2018 7:00 AM CDT Inhaled Oxygen Concentration - - Weight 43.1 kg (95 lb) 03/02/2018 3:24 AM CDT Height 152.4 cm (5') 03/02/2018 3:24 AM CDT Body Mass Index 18.55 03/02/2018 3:24 AM CDT Plan of Treatment Health Maintenance Due Date Last Done Comments HIV SCREENING 2003 DTAP/TDAP/TD VACCINES (1 - Tdap) 2007 HEPATITIS B VACCINE (1 of 3 - 19+ 3-dose series) 2007 COVID-19 VACCINE ( - 2023-2 5 season) 2024 DEPRESSION SCREENING 05/28/2024 INFLUENZA VACCINE (Season Ended) 2025 ZOSTER VACCINE (1 of 2) 2038 HEPATITIS C SCREENING Completed 09/26/2012 HIB VACCINE Aged Out No longer eligi ble based on patient's age to complete this topic HPV VACCINE Aged Out No longer eligi ble based on patient's age to complete this topic MENINGOCOCCAL (Group B) VACC INE SHARED DECISION-MAKING Aged Out No longer eligibl e based on patient's age to complete this topic MENINGOCOCCAL GROUPS A/C/Y/W VACCINE Aged Out No longer eligible b ased on patient's age to complete this topic PNEUMOCOCCAL VACCINE Aged Out No long er eligible based on patient's age to complete this topic Procedures Procedure Name Priority Date/Time Associated Diagnosis Comments HEPATITIS C ANTIBODY Routine 09/26/2012 3:34 AM CDT from Last 3 Months or Most Recently Relevant to Health Maintenance Results * HEPATITIS C ANTIBODY (09/26/2012 3:34 AM CDT) Pathologist [facility] HCV Antibody Screen Non Reactive Non Reactive 09/26/2012 5:55 AM CDT [facility] Blood specimen (specimen) BLOOD SPECIMEN / Unknown 09/26/2012 3:34 AM CDT 09/26/2012 3:47 AM CDT Narrative [facility] - 09/26/2012 5:55 AM CDT Nonreactive - Antibodies to HCV were not detected, result does not exclude early acute HCV infection. us Brianne Monroe MD LAB - CHEMISTRY ORDERABLE S Final Result [facility] [address] [place] [address] from Last 3 Months or Most Recently Relevant to Health Maintenance [place] [id number] [facility] [place] [address] Advance Directives * Full Code (Latest Code Status on File) Date Activated Date Inactivated Comments 11/17/2013 3:06 PM 11/17/2013 8:25 PM * FULL RESUSCITATION Date Activated Date Inactivated Comments 09/21/2012 11:40 AM 09/26/2012 1:10 PM * FULL RESUSCITATION Date Activated Date Inactivated Comments 09/21/2012 10:42 AM 09/21/2012 11:40 AM Care Teams Automatic Operator Relationship Specialty Start Date End Date Efren Valerio MD [address] [place] [id number] PCP - General 01/22/18
--- OUTSIDE RECORDS SUMMARY | 2024-10-27 16:32 | XMS_ITS | Clinical Summary ---
Author Organization [facility] Address [address] [place] [address] Care Team Providers Care Mobile Web Application Developer Name Role Phone Efren Valerio MD Primary Care Provider [phone] Allergies Active Allergy Reactions Criticality Noted Date [...] syndrome 09/03/2015 Endometriosis 09/03/2015 Joint pain 09/03/2015 Surgical History Surgery Date Site/Laterality Comments BREAST SURGERY Medical History Medical History Date Comments Anxiety Depression Seizures (HCC) Family History Medical History Relation Name Comments No Known Problems Father No Known Problems Mother Relation Name Status Comments Father Alive Mother Alive Social History Tobacco Use Types Packs/Day Years Used Date Smoking Tobacco: Never Smokeless Tobacco: Never Alcohol Use Standard Drinks/Week Comments No 0 (1 standard drink = 0.6 oz pur e alcohol) Comments No Sex and Gender Information Value Date Recorded Sex Assigned at Not on file Legal Sex Female 10:37 AM LEAD OPERATOR Gender Identity Not on file Sexual Orientation Not on file Obstetrics History Last Filed Vital Signs Vital Sign Reading [...] 03/15/2018 10:45 AM CDT Plan of Treatment Health Maintenance Due Date Last Done Comments Cervical Cancer Screening 1988 Depression Screening 1988 Hepatitis C Screening 1988 Varicella Vaccines (1 of 2 - 13+ 2-dose series) 2001 Hepatitis B Screening 2006 Regular Well Visit/Exam 18-64 2006 Covid-19 Vaccine (3 - 2023-2 5 season) 2024 07/20/2021, 12/01/2020 Influenza Vaccine (Season Ended) 2025 02/28/2017, 04/10/2014 DTaP/Tdap/Td Vaccine (2 - Td or Tdap) 08/09/2032 08/09/2022 HPV Vaccines Aged Out No longer eligi ble based on patient's age to complete this topic Pneumococcal vaccine <65 Aged Out No longer eligible based on patient's age to complete this topic Insurance [facility] MEDICAID [facility] AETNA [facility] [place] Care Teams Mobile Web Application Developer Relationship Specialty Start Date End Date Efren Valerio MD PCP - General Family Medicine 08/17/17
--- OUTSIDE RECORDS SUMMARY | 2024-10-27 16:33 | XMS_ITS | Continuity of Care Document ---
Author Organization [facility] Address [address] [place] [address] Phone Care Team Providers Care Plumber Pipe Fitting Name Role Phone Kelvin Samaniego MD Unavailable Unavailable Allergies, Adverse Reactions, Alerts Substance Reaction Status Criticality polymyxin B Active No Information NEOMYCIN SULFATE Active No Informat ion BACITRACIN ZINC Active No Informati on bacitracin Active No Information Medications Medication Instructions Dosage Effective Dates (start - stop) Status Comments Cymbalta 30 mg capsule,delayed release take 1 capsule by oral route every day 30 MG - Active Xanax 1 mg tablet take 1 tablet by oral route 2 times every day as needed 1 MG - Active PRN for anxi ety, avoid driving or operate machines Procedures Procedure Date PREV VISIT, NEW, AGE 18-39 Advance Directives Directive Yes / No Effective Date File Name No Information Encounters Encounter Description Practice Location Reason(s) For Visit Diagnoses Date Provider Providers Copied on Encounter PREV VISIT, NEW, AGE 18-39 [facility], [address] [place], [place] [address], [place], [id number], [place] tel:[phone] [facility] PHysical (chief complaint) Encntr for general adult medical exam w/o abnormal findings Aden Warren. [address], [id number], [place]. tel:[phone] Referring Provider: Kelvin Samaniego, [address] [place] [address], [id number]. tel:[phone] Family History Family Member Type Diagnosis Age At Onset Father Problem (finding) Alive and well Mother Problem (finding) Alive and well Sister Problem (finding) Alive and well Payers Payer name Insurance type Covered green party ID Liliana ye(s) No Information Social History [...] Mental Status Date Cognitive Assessment Orientation - [place] ed to time, place, person, situation.
--- OUTSIDE RECORDS SUMMARY | 2024-10-27 16:33 | XMS_ITS | Continuity of Care Document ---
Author Organization [facility] Address [address] [place] [address] [address] [place] [address] Phone Care Team Providers Care Ratoprinter Name Role Phone Cho OD, Dago Unavailable Unavailable Advance Directives Directive Yes / No Effective Date File Name No Information Encounters Encounter Description Practice Location Reason(s) For Visit Diagnoses Date Provider Providers Copied on Encounter [facility], [id number] [place] [address] [address], [place], [place], [id number], [place] tel:[phone] [facility] No Information 7-200 6 Cho OD Dago. [address] , [address], [place], [address], [place]. tel:[phone] Family History Family Member Type Diagnosis Age [...]
--- OUTSIDE RECORDS SUMMARY | 2024-10-27 16:33 | XMS_ITS | CONTINUITY OF CARE DOCUMENT ---
Author Name jose garcia Address Unknown Organization [facility] Address [address] [facility] [address] [place] [address] Phone [phone] Care Team Providers Care Hand Printed Circuit Board Assembler Name Role Phone Shakira Isbell MD Unavailable ALEJANDRO SPANGLER MD Unavailable [phone] ALEJANDRO SPANGLER MD Unavailable [phone] INSURANCE PROVIDERS Payer name Policy type / Coverage type [place] [employer] party ID [employer] [place] Medicaid [id number]
[2024-10-27 16:35] VITALS: BP 118/68; PULSE 103; RESP 18; TEMP 36.8; O2SAT 99
--- NOTE | 2024-10-27 16:47 | ED_ITS ---
HPI - General Adult General Chief complaint: Skin/Abscess/Foreign Body Stated complaint: Skin/Abscess/Foreign Body History of Present Illness HPI narrative: Elidia Ji Is a 34-year-old female who presents today with complaints having a rash off and on to her extremities. she states that she has also started to have areas to her eyelid and the top of her forehead. She denies any of the rash as being painful. She denies any rashes inside of her mouth are mucous membranes. She reports this and has the rash is on her legs and then it disappears noted on her the back of her hands and then it goes away a ways itching. She denies any new soaps, detergents, medications. Shortness of breath or difficulty breathing. She states this rash has been off and on for 2 months. Related Data Home Medications ?Medication ?Instructions ?Recorded ?Confirmed ?Last Taken ?Type clonazepam 1 mg tablet 1 mg PO BID 04/17/24 04/17/24 Unknown History lurasidone 120 mg tablet 120 mg PO DAILY 04/17/24 04/17/24 Unknown History Allergies Allergy/AdvReac Type Severity Reaction Status Date / Time naproxen Allergy Mild Hives Verified 10/27/24 16:36 Review of Systems Review of Systems: All systems reviewed & are unremarkable except as noted in HPI and below PMFSH Past Medical History Medical History Depression Social History Social History Social History: Patient smokes occasionally, drinks occasionally, denies any marijuana Substance use: unknown Exam Narrative: GENERAL: Well-appearing, well-nourished, and in no acute distress. HEAD: Normocephalic, atraumatic. EYES: PERRLA and EOMI. ENT: Nares clear, no rhinorrhea or epistaxis. Mucous membranes moist. Oropharynx without tonsillar hypertrophy exudate or other lesions. Bilateral TMs pearly griffiths nonbulging NECK: Supple. No adenopathy or masses. No carotid bruits or JVD CHEST: Clear to auscultation. No respiratory distress. No wheezes rales or rhonchi HEART: Regular rate and rhythm. No murmur heard. Normal peripheral pulses. ABDOMEN: Soft, nontender, nondistended, normal active bowel sounds. EXTREMITIES: Normal range of motion. No edema. SKIN: Warm, dry, area of small round raised papules to back of hands that are itching not painful / no vesicular no drainage NEURO: No focal deficits. Alert and oriented x3. PSYCH: Normal mood and affect. Course Course Level of Care: Express Care Visit Vital Signs Vital signs: Vital Signs Temperature 36.8 C 10/27/24 16:35 Pulse Rate 103 H 10/27/24 16:35 Respiratory Rate 18 10/27/24 16:35 Blood Pressure 118/68 10/27/24 16:35 Pulse Oximetry 99 10/27/24 16:35 Oxygen Delivery Room Air 10/27/24 16:35 Temperature 36.8 C 10/27/24 16:35 Pulse Rate 103 H 10/27/24 16:35 Respiratory Rate 18 10/27/24 16:35 Blood Pressure 118/68 10/27/24 16:35 Pulse Oximetry 99 10/27/24 16:35 Oxygen Delivery Room Air 10/27/24 16:35 Medical Decision Making [facility] Narrative Medical decision making narrative: 34 y/o with complaints of intermittent itching rash to different areas of her body for the past two months. based on hx and exam likely some type of contact dermatitis Will start pt on zyrtec daily / Methylpred and Topical Triamcinolone Close PCP follow up Return precautions provided Medical Records Medical records reviewed: Yes I reviewed the external patient's medical records. Vital Signs Vital Signs: Vital Signs Temperature 36.8 C 10/27/24 16:35 Pulse Rate 103 H 10/27/24 16:35 Respiratory Rate 18 10/27/24 16:35 Blood Pressure 118/68 10/27/24 16:35 Pulse Oximetry 99 10/27/24 16:35 Oxygen Delivery Room Air 10/27/24 16:35 Temperature 36.8 C 10/27/24 16:35 Pulse Rate 103 H 10/27/24 16:35 Respiratory Rate 18 10/27/24 16:35 Blood Pressure 118/68 10/27/24 16:35 Pulse Oximetry 99 10/27/24 16:35 Oxygen Delivery Room Air 10/27/24 16:35 Vitals reviewed by me Discharge Plan Discharge Clinical Impression: Contact dermatitis Qualifiers: Contact dermatitis type: unspecified Contact dermatitis trigger: unspecified trigger Qualified Code(s): L25.9 - Unspecified contact dermatitis, unspecified cause Patient Disposition: Home Condition: Stable Instructions: Antibiotic Form Additional Instructions: Start taking the zyrtec once daily for the itching and rash symptoms Start the Steroid pack as ordered for 6 days Start using the steroid ointment to affected areas twice daily - do not apply to face or genitals as it can decrease pigmentation Follow up with your PCP to explore possible medication or other allergens that could be causing your symptoms. If you develop any worsening symptoms : shortness of breath/ fever/ sores in your mouth / painful lesions / fever then proceed to the ER Patient Language: Prydeinig Prescriptions: New cetirizine [Allergy Relief (cetirizine)] 10 mg tablet 10 mg PO DAILY PRN (Reason: allergy symptoms) Qty: 30 0RF methylprednisolone 4 mg tablets,dose pack See Rx Instructions .ROUTE .COMPLEX Qty: 21 0RF Rx Instructions: for 6 days triamcinolone acetonide 0.1 % ointment 1 applic topical BID Qty: 80 1RF Rx Instructions: apply to affected areas twice daily for 1-2 weeks - do not apply to face or genitals No Action clonazepam 1 mg tablet 1 mg PO BID lurasidone 120 mg tablet 120 mg PO DAILY Follow-up/Referrals: Jack,NADEGE Carpenter [Primary Care Provider] - 1 Week Time of Disposition: 16:51
== END 2024-10-27 16:54 | disposition home or self-care (01) ==
PROVIDERS: Emergency Provider Nurse Practitioner Family; PCP Nurse Practitioner Family
DX: L25.9 Unspecified contact dermatitis, unspecified cause (principal); Z72.0 Tobacco use; F32.A Depression, unspecified
CPT/HCPCS: 99213; G0463